=== PATIENT | male | born 1990 | race Caucasian/White ===

== ENCOUNTER → 2019-04-15 | Outpatient (CLI) | payer SELFPAY | LOC: LAB 10:25 | DX: R11.0 Nausea (principal); R53.83 Other fatigue; R17 Unspecified jaundice ==

== ENCOUNTER → 2020-09-06 | Outpatient (CLI) | payer SELFPAY | LOC: RAD 16:57 | DX: M54.2 Cervicalgia (principal) ==

== ENCOUNTER → 2022-08-08 | Outpatient (CLI) | payer SELFPAY ==
[2022-08-08 11:21] LABS: BASO # 0.02 K/mm3 (0.02-0.10); EOS # 0.03 K/mm3 (0.04-0.40); EOS % 0.6 % (0.0-4.0); HEMATOCRIT 43.3 % (42.0-52.0); HEMOGLOBIN 14.7 g/dL (13.5-18.0); LYMPH# 1.21 K/mm3 (1.50-4.00); MEAN CELL VOLUME 89 fl (78-100); MEAN CORPUSCULAR HEMOGLOBIN 30 pg (27-31); MEAN CORPUSCULAR HGB CONC 34 g/dL (33-37); MEAN PLATELET VOLUME 9.9 fl (7.4-10.4); MONO # 0.38 K/mm3 (0.20-0.80); NEU # 3.08 K/mm3 (1.40-6.50); PLATELET COUNT 250 K/mm3 (130-400); RED BLOOD COUNT 4.86 M/mm3 (4.20-5.60); RED CELL DISTRIBUTION WIDTH 12.3 % (11.5-14.5); WHITE BLOOD COUNT 4.7 K/mm3 (4.8-10.8)
[2022-08-08 11:24] LABS: ALBUMIN 4.6 g/dL (3.5-5.0)
[2022-08-08 11:25] LABS: SODIUM 138 mmol/L (136-145)
[2022-08-08 11:26] LABS: CALCIUM 9.6 mg/dL (8.3-10.5)
[2022-08-08 11:27] LABS: GLUCOSE 96 mg/dL (75-110)
[2022-08-08 11:28] LABS: CARBON DIOXIDE 26 mmol/L (22-29)
[2022-08-08 11:32] LABS: AST-SGOT 20 U/L (5-34)
[2022-08-08 11:34] LABS: ALT/SGPT 18 U/L (0-55)
[2022-08-08 11:43] LABS: TROPONIN-I < 0.030 ng/mL (<0.030)
== END ==
LOC: LAB 09:02 → AMSURD 09:02
PROVIDERS: Nurse Practitioner Family
DX: R00.2 Palpitations (principal)